=== PATIENT | male | born 1965 | race Caucasian/White ===

== ENCOUNTER 2017-08-09 12:40 | Day surgery (SDC) | payer OTHER ==
[~2017-08-09] VITALS: Ht 182.9 cm; Wt 77.7 kg
[2017-08-09] MEDS ORDERED: MVI (13:15)
[2017-08-09] MEDS ORDERED: ASPIRIN (13:15)
[2017-08-09 13:19] VITALS: Ht 182.9 cm; Wt 77.7 kg
[2017-08-09] MEDS ORDERED: PROPOFOL 20 ML ONE ×2 (13:39→16:19)
[2017-08-09] MEDS ORDERED: FENTAnyl 50 MCG/ML VIAL ONE ×2 (13:39→14:04)
[2017-08-09] MEDS ORDERED: MIDAZOLAM 1 MG/ML 2 ML INJ ONE (13:40)
--- NOTE | 2017-08-09 14:33 | OPPN ---
Date/Time of Note Date/Time of Note DATE: 08/09/17 TIME: 13:45 Proc Note GI Procedure Date 08/09/17 Indication: screening/surveillance, diagnostic Pre-procedure Diagnosis diarrhea, abdominal pain, screening Post-procedure Diagnosis see below Procedure Performed: Endoscopy, Colonoscopy Surgeon see signature line Postal Mail Carrier none Anesthesia Type: MAC Anesthesiologist: LEO ALONSO MD Tourniquet Time none EBL none Transfusion required none Biopsy 1: see report Grafts/Implants none Tubes/Drains none Complication(s) none Disposition: home Procedure Description After informed consent, the patient was placed in left lateral position and sedated per anesthesia. The Olympus video endoscope was easily passed in patient's esophagus. The instrument was advanced to the stomach. The pylorus was seen. The duodenal bulb and second portion of the duodenum were examined and appeared normal. Construction Recruiter duodenal biopsies were performed. There was no untoward bleeding from the sites. The instrument was jose g removed to the patient's stomach which was carefully examined including turnaround procedure. "[id number]" gastritis.. Construction Recruiter biopsies were performed. There was no untoward bleeding biopsy sites. In addition there was bilious material within the stomach. The instrument was then removed the patient's esophagus. A small hiatal hernia was noted. In the distal esophagus whitish plaques suggestive of Vaishnavi esophagitis were noted. Brushings and biopsies were performed. Again no untoward bleeding was noted. Impression: 1. 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 Gastritis 3. Hiatal hernia 4. Bilious material in stomach After informed consent, the patient was placed in left lateral position and sedated per anesthesia. The Olympus video colonoscope was easily passed into the patient's rectum. This is advanced to the sigmoid descending transverse descending colon to the cecum. The appendiceal orifice and ileocecal valve were identified. These appeared normal. Ileocecal valve was traversed. Normal ileum was encountered and account retention representative biopsies were performed. The instrument was then slowly moved to the cecum and ascending transverse descending and sigmoid colon. Construction Recruiter colon biopsies were performed. Turnaround procedure was performed in the rectum and was within normal limits. Construction Recruiter rectal biopsies were performed as well. The instrument was removed the patient's rectum. Patient tolerated well. Complications: None Impression: 1. Grossly normal terminal ileum and colon - biopsies performed regarding history of diarrhea Plan: Await biopsy results YAMINI LEBLANC MD Aug 09, 2017 13:55
--- NOTE | 2017-08-09 14:33 | OPPN ---
Date/Time of Note Date/Time of Note DATE: 08/09/17 TIME: 13:45 Proc Note GI Procedure Date 08/09/17 Indication: screening/surveillance, diagnostic Pre-procedure Diagnosis diarrhea, abdominal pain, screening Post-procedure Diagnosis see below Procedure Performed: Endoscopy, Colonoscopy Surgeon see signature line Stamp Redemption Clerk none Anesthesia Type: MAC Anesthesiologist: LEO ALONSO MD Tourniquet Time none EBL none Transfusion required none Biopsy 1: see report Grafts/Implants none Tubes/Drains none Complication(s) none Disposition: home Procedure Description After informed consent, the patient was placed in left lateral position and sedated per anesthesia. The Olympus video endoscope was easily passed in patient's esophagus. The instrument was advanced to the stomach. The pylorus was seen. The duodenal bulb and second portion of the duodenum were examined and appeared normal. Nozzle And Sleeve Worker duodenal biopsies were performed. There was no untoward bleeding from the sites. The instrument was jose g removed to the patient's stomach which was carefully examined including turnaround procedure. "[id number]" gastritis.. Nozzle And Sleeve Worker biopsies were performed. There was no untoward bleeding biopsy sites. In addition there was bilious material within the stomach. The instrument was then removed the patient's esophagus. A small hiatal hernia was noted. In the distal esophagus whitish plaques suggestive of Vaishnavi esophagitis were noted. Brushings and biopsies were performed. Again no untoward bleeding was noted. Impression: 1. 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 Gastritis 3. Hiatal hernia 4. Bilious material in stomach After informed consent, the patient was placed in left lateral position and sedated per anesthesia. The Olympus video colonoscope was easily passed into the patient's rectum. This is advanced to the sigmoid descending transverse descending colon to the cecum. The appendiceal orifice and ileocecal valve were identified. These appeared normal. Ileocecal valve was traversed. Normal ileum was encountered and farm loan representative biopsies were performed. The instrument was then slowly moved to the cecum and ascending transverse descending and sigmoid colon. Nozzle And Sleeve Worker colon biopsies were performed. Turnaround procedure was performed in the rectum and was within normal limits. Nozzle And Sleeve Worker rectal biopsies were performed as well. The instrument was removed the patient's rectum. Patient tolerated well. Complications: None Impression: 1. Grossly normal terminal ileum and colon - biopsies performed regarding history of diarrhea Plan: Await biopsy results YAMINI LEBLANC MD Aug 09, 2017 13:55
--- NOTE | 2017-08-09 14:33 | OPPN ---
Date/Time of Note Date/Time of Note DATE: 08/09/17 TIME: 13:45 Proc Note GI Procedure Date 08/09/17 Indication: screening/surveillance, diagnostic Pre-procedure Diagnosis diarrhea, abdominal pain, screening Post-procedure Diagnosis see below Procedure Performed: Endoscopy, Colonoscopy Surgeon see signature line Quality Officer none Anesthesia Type: MAC Anesthesiologist: LEO ALONSO MD Tourniquet Time none EBL none Transfusion required none Biopsy 1: see report Grafts/Implants none Tubes/Drains none Complication(s) none Disposition: home Procedure Description After informed consent, the patient was placed in left lateral position and sedated per anesthesia. The Olympus video endoscope was easily passed in patient's esophagus. The instrument was advanced to the stomach. The pylorus was seen. The duodenal bulb and second portion of the duodenum were examined and appeared normal. Heel Coverer duodenal biopsies were performed. There was no untoward bleeding from the sites. The instrument was jose g removed to the patient's stomach which was carefully examined including turnaround procedure. "[id number]" gastritis.. Heel Coverer biopsies were performed. There was no untoward bleeding biopsy sites. In addition there was bilious material within the stomach. The instrument was then removed the patient's esophagus. A small hiatal hernia was noted. In the distal esophagus whitish plaques suggestive of Vaishnavi esophagitis were noted. Brushings and biopsies were performed. Again no untoward bleeding was noted. Impression: 1. 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 Gastritis 3. Hiatal hernia 4. Bilious material in stomach After informed consent, the patient was placed in left lateral position and sedated per anesthesia. The Olympus video colonoscope was easily passed into the patient's rectum. This is advanced to the sigmoid descending transverse descending colon to the cecum. The appendiceal orifice and ileocecal valve were identified. These appeared normal. Ileocecal valve was traversed. Normal ileum was encountered and arborist representative biopsies were performed. The instrument was then slowly moved to the cecum and ascending transverse descending and sigmoid colon. Heel Coverer colon biopsies were performed. Turnaround procedure was performed in the rectum and was within normal limits. Heel Coverer rectal biopsies were performed as well. The instrument was removed the patient's rectum. Patient tolerated well. Complications: None Impression: 1. Grossly normal terminal ileum and colon - biopsies performed regarding history of diarrhea Plan: Await biopsy results YAMINI LEBLANC MD Aug 09, 2017 13:55
[2017-08-09 15:15] VITALS: BP 108/69; RESP 14
== END 2017-08-09 16:22 | disposition home or self-care (01) ==
LOC: GIL 12:40
PROVIDERS: ATTEND Internal Medicine Gastroenterology
DX: Z12.11 Encounter for screening for malignant neoplasm of colon (principal); K29.30 Chronic superficial gastritis without bleeding; K44.9 Diaphragmatic hernia without obstruction or gangrene; B37.81 Candidal esophagitis; E78.00 Pure hypercholesterolemia, unspecified; R19.7 Diarrhea, unspecified
CPT/HCPCS: 43239; 45378; J2250; J3010